=== PATIENT | male | born 1990 | race Caucasian/White ===

== ENCOUNTER 2017-08-09 13:06 | Emergency (ER) | payer MEDICAID ==
[~2017-08-09] VITALS: Ht 162.6 cm; Wt 65.8 kg
[2017-08-09 13:06] VITALS: BP 117/82
== END 2017-08-09 13:44 | disposition home or self-care (01) ==
LOC: ER 13:13
DX: Z76.0 Encounter for issue of repeat prescription (principal); J45.909 Unspecified asthma, uncomplicated; Z91.010 Allergy to peanuts
CPT/HCPCS: 99283; A4606; Z7610

== ENCOUNTER 2020-08-09 09:22 | Emergency (ER) | payer MEDICAID ==
[~2020-08-09] VITALS: Ht 162.6 cm; Wt 68.5 kg
--- NOTE | 2020-08-09 09:30 | NUR ---
[id number] [facility] FOR WITNESSED SEIZURE. BG 109. C/O L SHOULDER PAIN + TONGUE TRAUMA. PATIENT POST-ICTAL, AROUSABLE TO STIMULI. ATTACHED TO THE SORTER OPERATOR. NO DISTRESS NOTED. VITALS STABLE.
[2020-08-09] MEDS ORDERED: LEVETIRACETAM (500MG) 1,000 MG in IV NS 0.9% 100 ML IV ONE (10:00)
--- NOTE | 2020-08-09 10:03 | NUR ---
Jaime ramos in [facility] - 08/09/20 at 1004 by BOUBACAR ORIN Small, DR. MOLINA MADE AWARE
--- NOTE | 2020-08-09 10:45 | NUR ---
PATIENT A/OX4, BREATHING EVEN AND UNLABORED, NO SOB NOTED. NO SEIZURE ACTIVITY AT THIS TIME. VITALS STABLE.
--- NOTE | 2020-08-09 11:21 | NUR ---
Patient a/ox4, ambulatory with steady gait. No distress ntoed. IV removed. Catheter intact and site benign. Pressure and 4x4 applied to site. No bleeding noted.Patient discharged to home in stable condition. Written and verbal after care instructions given. Patient verbalizes understanding of instruction.
[2020-08-09 11:22] VITALS: BP 131/85
== END 2020-08-09 11:22 | disposition home or self-care (01) ==
LOC: ER 09:26
DX: S00.512A Abrasion of oral cavity, initial encounter (principal); G40.909 Epilepsy, unspecified, not intractable, without status epilepticus; J45.909 Unspecified asthma, uncomplicated; Z91.010 Allergy to peanuts; X58.XXXA Exposure to other specified factors, initial encounter; Y93.89 Activity, other specified; Y92.89 Other specified places as the place of occurrence of the external cause; Y99.8 Other external cause status
CPT/HCPCS: 96365; 99284; J1953; J7030